=== PATIENT | female | born 1965 | race Caucasian/White ===

== ENCOUNTER → 2021-01-04 10:05 | Outpatient (CLI) | payer OTHER, SELFPAY ==
[2021-01-04] MEDS: COVID-19 VACC, Ad26(JANSSEN)/PF 0.5 ML IM (10:14)
--- NOTE | 2021-01-04 13:50 | PC.NURSE ---
patient presented to vaccine clinic for Omnidrive vaccine with her . Pt reported in advance that she gets angioedema in reaction to medications. Discussed pros and cons with patient. Patient consented to vaccine. Received the vaccine at 10:14. Patient was monitored for 45 minutes. No signs or symptoms of reaction. Patient reported she felt well. Patient instructed to return to the ED if she felt any difficulty breathing or signs of severe reaction. Patient left vaccine clinic. Patient returned to clinic at 12:20 with and came directly in. Patient stated they had never left the parking lot. she began to feel shortness of breath and chest pain, so they came back in. patient immediately placed in wheelchair and taken to the ED.
== END ==
PROVIDERS: Visit Provider Internal Medicine
DX: Z23 Encounter for immunization (principal)
CPT/HCPCS: 0031A; 91303

== ENCOUNTER 2021-01-04 12:28 | Emergency (ER) | payer OTHER, SELFPAY ==
[2021-01-04 12:27] VITALS: BP 184/90; PULSE 81; RESP 15; TEMP 36.4; O2SAT 100; BMI 23.0
[2021-01-04 12:38] VITALS: PULSE 80; O2SAT 100
--- NOTE | 2021-01-04 12:38 | ED_ITS ---
HPI - General Adult General Chief complaint: Allergic Reaction Stated complaint: Allergic reaction at vaccine clinic Time Seen by Provider: 01/04/21 12:32 Source: patient Mode of arrival: Wheelchair Limitations: no limitations History of Present Illness HPI narrative: Patient is a 55-year-old female. Approximately 2 hours status post the [employer] COVID-19 vaccine. She received that here at this facility. 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 She was waiting in her car for another hour after the vaccine where she stated that she started to get some flushing of her chest and also what sounds like palpitations. She has had no nausea or vomiting. No problems breathing. No swelling of her tongue or her lips. She has not gotten any other redness or tingling in her hands which she has had in the past with her angioedema symptoms. She went back into the immunization Clinic brought her up to the emergency department for evaluation. Related Data Allergies Allergy/AdvReac Type Severity Reaction Status Date / Time No Known Drug Allergies Allergy Verified 01/04/21 12:30 Review of Systems Constitutional Constitutional: Denies fever(s) and Denies headache(s) Eyes Eyes: Denies itchy eyes ENT Ears, Nose, Mouth, and Throat: Denies headache(s), Denies lip swelling, Denies throat swelling and Denies tongue swelling Cardiovascular Cardiovascular: Denies chest pain, Reports rapid heart rate and Denies dyspnea Respiratory Respiratory: Denies cough and Denies dyspnea Gastrointestinal Gastrointestinal: Denies abdominal pain, Denies nausea and Denies vomiting Genitourinary Genitourinary: Denies dysuria Genitourinary: Denies dysuria Musculoskeletal Musculoskeletal: Denies arthralgias and Denies myalgias Integumentary/Breasts Skin/Breast: Denies skin swelling Comments: Redness on her neck Neurologic Neurologic: Denies behavioral changes and Denies headache(s) Psychiatric Psychiatric: Denies behavioral changes Hematologic/Lymphatic On Anticoagulants: No Allergic/Immunologic Allergic/Immunologic: Denies urticaria, Denies itchy eyes, Denies lip swelling, Denies throat swelling and Denies tongue swelling Patient History Medical History Angioedema Social History Smoking Status: Unknown if ever smoked Smoking Status: Unknown if ever smoked alcohol intake frequency: holidays/special occasions only Substance Use Type: does not use Exam Initial Vital Signs Initial Vital Signs: Vital Signs Temperature 97.6 F 01/04/21 12:27 Pulse Rate 81 01/04/21 12:27 Respiratory Rate 15 01/04/21 12:27 Blood Pressure 184/90 H 01/04/21 12:27 Pulse Oximetry 100 01/04/21 12:27 Const General: cooperative, comfortable and well developed Limitations: mental status not altered HENMT Head: normal to inspection and normocephalic Resp Effort & Inspection: normal respiratory effort Auscultation: clear to auscultation bilaterally Cardio Rate: regular rate Rhythm: regular rhythm GI Inspection: non-distended Palpation: soft Skin Other: Redness without hives on the anterior portion of her neck. Neuro General: patient alert and patient awake Cognition: normal cognition Speech: speech normal Extrem General: normal to inspection and capillary refill normal Psych Appearance: grossly normal and well kempt Course Orders Ordered: ED Orders 01/04/21 12:32 EKG-12 Lead Stat Discontinued Medications Diphenhydramine HCl (Diphenhydramine 25 Mg Tablet) 25 mg PO NOW ONE Stop: 01/04/21 12:39 Last Admin: 01/04/21 12:46 Dose: 25 mg Documented by: NIDA Vital Signs Vital signs: Vital Signs - 8 hr 01/04/21 12:27 01/04/21 12:38 01/04/21 13:00 Temperature 97.6 F Pulse Rate 81 80 67 Respiratory Rate 15 Blood Pressure 184/90 H 137/77 Pulse Oximetry 100 100 99 Medical Decision Making ECG Data Attestation: I personally reviewed and interpreted this ECG as follows: Prior ECG tracings: not available for review Interpretation: Sinus rhythm Ventricular rate of 71 Occasional PVC Normal QRS Normal QTC No ST T wave changes MDM Narrative Medical decision making narrative: Patient reported improvement of symptoms after just 1 Benadryl. Is now been approximately 3 hours since her vaccine. She has no signs of anaphylaxis. Patient states she feels comfortable being discharged. We did discuss the use of Benadryl at home as needed. Discussed return precautions. She expressed understanding and agreement. Discharge Plan Departure Patient Disposition: Home Clinical Impression: Allergic reaction Instructions: DI for Hives Activity Restrictions/Additional Instructions: You can take an vejn-hry-iignaat Benadryl every 4-6 hours as needed for any itch ing. Return to the emergency department for any new or worsening symptoms.
[2021-01-04] MEDS: diphenhydrAMINE 25 MG TABLET PO (12:46)
[2021-01-04 13:00] VITALS: BP 137/77; PULSE 67; O2SAT 99
--- NOTE | 2021-01-04 13:07 | PC.NURSE ---
Pt feeling much better,sx have resolved.
== END 2021-01-04 13:22 | disposition home or self-care (01) ==
PROVIDERS: Emergency Provider Emergency Medicine
DX: T78.40XA Allergy, unspecified, initial encounter (principal)
CPT/HCPCS: 93005; 99283

== ENCOUNTER 2021-12-30 13:57 | Emergency (ER) | payer OTHER, SELFPAY ==
[2021-12-30 14:01] VITALS: BP 161/80; PULSE 74; RESP 16; TEMP 36.6; O2SAT 100; BMI 22.1
--- NOTE | 2021-12-30 14:35 | DI.RAD.S_ITS ---
PROCEDURE: XR SHOULDER LT MIN 2V INDICATIONS: sudden pain unknown TECHNIQUE: 3 views of the shoulder were acquired. COMPARISON: None. FINDINGS: Bones: No fractures or dislocations. No suspicious bony lesions. Visualized ribs appear intact. Soft tissues: No suspicious soft tissue calcifications. IMPRESSION: No visualized acute fracture or dislocation. However, if clinical concern and/or pain persist, short interval imaging followup in 7-10 days is recommended, as occult injury cannot be definitively excluded. Dictated by: Avelina Rangel M.D. on 12/30/2021 at 15:05 Approved by: Avelina Rangel M.D. on 12/30/2021 at 15:05
--- NOTE | 2021-12-30 15:15 | ED.UPPEXIN ---
HPI - Extremity Injury (Upper) <INGRID Manuel - Last Filed: 12/30/21 15:33> General Chief Complaint: Extremity Injury, Upper Stated Complaint: Left shoulder pain Time Seen by Provider: 12/30/21 14:08 Source: patient and family Mode of arrival: Ambulatory History of Present Illness HPI narrative: This is a 56-year-old female presents to the emergency department with onset of left shoulder pain last night after she she went to bed. She states that she woke up at 21:00 with left shoulder pain which has not let up. She states that she is very active, has very low cardiovascular risk, recently has had a SAMINA without abnormal findings. States her primary care provider is Dr. Finley on [facility], she denies any chest pain, shortness of breath, weakness, neck pain, recent trauma. She denies any repetitive movements of her left arm, and nothing exciting has happened to her this week, she states she could of laid on it funny but does not remember any painful positions. She denies any range of motion limitations, states pain is worse with abduction, flexion, and external rotation, all other movements are tolerable without much pain. Patient states that she has history of angioedema, does not tolerate NSAIDs, adhesives, topical ointments or creams. She has only taken Tylenol for this pain, states that that is all she is interested in trying. Related Data Allergies Allergy/AdvReac Type Severity Reaction Status Date / Time SAMIR Inhibitors Allergy Severe Anaphylaxis Verified 12/30/21 14:06 doxycycline Allergy Severe Hallucinati Verified 12/30/21 14:06 ng NSAIDS (Non-Steroidal Allergy Severe Anaphylaxis Verified 12/30/21 14:06 Anti-Inflamma Review of Systems <INGRID Manuel - Last Filed: 12/30/21 15:33> Review of Systems Narrative: General: denies fever, chills Head/Neck: denies headache, neck pain Eyes: denies visual changes, eye pain Cardio: denies chest pain, palpitations Respiratory: denies shortness of breath, cough GI: denies abdominal pain, nausea, vomiting, or diarrhea : denies dysuria, hematuria MSK: denies muscle weakness, left shoulder pain with abduction, shoulder flexion, external rotation Skin: denies rash, itching Neuro: denies numbness, tingling Patient History <INGRID Manuel - Last Filed: 12/30/21 15:33> Medical History Angioedema Social History Smoking Status: Never smoker Smoking Status: Never smoker alcohol intake frequency: holidays/special occasions only Substance Use Type: does not use Exam <INGRID Manuel - Last Filed: 12/30/21 15:33> Narrative Exam Narrative: Independently reviewed vitals signs and nursing notes. General: cooperative, comfortable, in no acute distress, well developed and well groomed Head: atraumatic, symmetrical facial expressions Neck: supple, atraumatic, without lymphadenopathy. Eyes: pupils equal round and reactive, EOMI, conjunctiva normal Nose: nares patent, no rhinorrhea Mouth/Throat: uvula midline, moist mucus membranes Cardiovascular: regular rate and rhythm, no peripheral edema, warm extremities Respiratory: normal effort, able to speak in complete sentences, no audible wheezing, stridor, or rales. No retractions or tachypnea. MSK: moves all extremities, ambulatory w/steady gait, neurovascularly intact, no weakness, left anterior shoulder tenderness with palpation, pain is worst when eliciting left shoulder flexion, external rotation, abduction, pain runs from anterior shoulder down bicep. No edema, discoloration, muscle weakness, alteration in CSM. Radial pulses 2+, cap refill less than 2 seconds, patient denies any numbness or tingling distally Skin: brisk capillary refill, no rash, no erythema Neuro: normal speech and cognition, A&O x3, normal tone Psych: mental status is grossly normal, congruent mood, normal affect, pleasant and cooperative Initial Vital Signs Initial Vital Signs: Vital Signs Temperature 97.9 F 12/30/21 14:01 Pulse Rate 74 12/30/21 14:01 Respiratory Rate 16 12/30/21 14:01 Blood Pressure 161/80 H 12/30/21 14:01 Pulse Oximetry 100 12/30/21 14:01 <Bindu Carrillo DO - Last Filed: 12/30/21 19:20> Initial Vital Signs Initial Vital Signs: Vital Signs Temperature 97.9 F 12/30/21 14:01 Pulse Rate 74 12/30/21 14:01 Respiratory Rate 16 12/30/21 14:01 Blood Pressure 161/80 H 12/30/21 14:01 Pulse Oximetry 100 12/30/21 14:01 Procedures <INGRID Manuel - Last Filed: 12/30/21 15:33> Orthopedic Splinting/Casting Injury #1: Upper Extremity Injury Location: shoulder Upper Extremity Immobilizer: sling/shoulder immobilizer Course <INGRID Manuel - Last Filed: 12/30/21 15:33> Orders Ordered: ED Orders 12/30/21 14:11 EKG-12 Lead Stat 12/30/21 14:35 XR shoulder LT min 2V Stat Vital Signs Vital signs: Vital Signs - 8 hr 12/30/21 14:01 12/30/21 17:05 Temperature 97.9 F Pulse Rate 74 65 Respiratory Rate 16 16 Blood Pressure 161/80 H 159/89 H Pulse Oximetry 100 98 <Bindu Carrillo DO - Last Filed: 12/30/21 19:20> Orders Ordered: ED Orders 12/30/21 14:11 EKG-12 Lead Stat 12/30/21 14:35 XR shoulder LT min 2V Stat Vital Signs Vital signs: Vital Signs - 8 hr 12/30/21 14:01 12/30/21 17:05 Temperature 97.9 F Pulse Rate 74 65 Respiratory Rate 16 16 Blood Pressure 161/80 H 159/89 H Pulse Oximetry 100 98 MDM - Extremity Injury (Upper) <INGRID Manuel - Last Filed: 12/30/21 15:33> Imaging Data Extremity x-ray #1: Radiologist's Impression: PROCEDURE:? XR SHOULDER LT MIN 2V ? INDICATIONS:? sudden pain unknown ? TECHNIQUE:? 3 views of the shoulder were acquired.? ? COMPARISON:? None. ? FINDINGS:? ? Bones:? No fractures or dislocations.? No suspicious bony lesions.? Visualized ribs appear intact.? ? Soft tissues:? No suspicious soft tissue calcifications.? ? IMPRESSION:? No visualized acute fracture or dislocation. However, if clinical concern and/or pain persist, short interval imaging followup in 7-10 days is recommended, as occult injury cannot be definitively excluded. ? ? Dictated by: Avelina Rangel M.D. on 12/30/2021 at 15:05 ? ? Approved by: Avelina Rangel M.D. on 12/30/2021 at 15:05 ? ECG Data Interpretation: EKG independently reviewed by myself and Dr. Bindu Carrillo which reveals normal sinus rhythm at 71 bpm with regular axis and intervals. No STEMI, ST segment changes, arrhythmia, or acute ischemic changes. MDM Narrative Medical decision making narrative: This is a 56 year female without pertinent medical history who presents to the emergency department with acute onset of left shoulder pain last night without known injury. Patient has pain with left shoulder flexion, external rotation, abduction, no significant pain with other movements. CSM is intact, x-ray does not show any acute fracture dislocation, no osseous abnormality was visible on x-ray. Patient is an active female who exercises regularly, she denies any recent or frequent repetitive movements, injury, or trauma. Patient was encouraged to follow-up with her primary care provider for advanced imaging and a physical therapy referral if her symptoms are ongoing. Patient declined any other medications in addition to Tylenol. She has a history of anaphylaxis, so urgent Samir inhibitors, NSAIDs, and doxycycline. She is given a sling, encouraged to wear her sling when she is out of the house, and also encouraged to take her arm out of the sling and do gentle range of motion at home to help prevent shoulder impingement syndrome. I suspect this is an anterior rotator cuff injury, she has palpable tenderness on her anterior left shoulder. She was given ice pack, encouraged her eyes her left shoulder frequently, use heat for her muscle tension, and follow-up with her primary care provider. She was given the phone number for [facility] if her symptoms are not improving, she will follow up accordingly. Patient is appropriate and amenable to discharge home. Vital signs are stable on repeat examination is unremarkable. Patient has been informed of results. Patient has been given strict return to ER precautions for any new or worsening symptoms. Patient understands to follow up closely with outpatient providers as instructed. Patient understands plan and agrees to discharge home. All questions and concerns answered at this time. Discharge Plan Departure Patient Disposition: Home Clinical Impression: Sprain of left shoulder Qualifiers: Encounter type: initial encounter Shoulder sprain type: rotator cuff capsule Qualified Code(s): S43.422A - Sprain of left rotator cuff capsule, initial encounter Instructions: Shoulder Sprain, Frozen Shoulder, Shoulder Tendinopathy, DI for Shoulder Sprain Activity Restrictions/Additional Instructions: *You have been diagnosed with an anterior rotator cuff sprain or strain. It is difficult to know exactly what happened because your symptoms are consistent with an injury. Your EKG appears fine, this is very unlikely that this is cardiac in nature. Please wear a sling when your out of the house, ice it frequently, take Tylenol as needed for your pain. Please ice it frequently, do gentle light movement as opposed to wearing a sling at all times. If you wear sling too long it can cause frozen shoulder syndrome. I have attached information about that so you can try and avoid it. If your pain is not improving, please contact your primary care provider and ask for a referral to physical therapy and for a MRI. In follow-up with orthopedics. I have attached [facility] below, you may call them and make an appointment if your symptoms are ongoing/worsening. Thank you for trusting us with your care, your x-ray is available on [employer] and will be available to your providers when I send your chart to them. *What to do: *Please continue to take your regular medications as directed. [ ] New medication prescriptions sent to your pharmacy: [ ] [ ] New medication written as a paper prescription [x ] No new medications given *Please follow up with your primary care provider in 2-3 days, call for an appointment. Let them know you were seen in the Emergency Department and that we asked that you be seen for follow-up. We will electronically transmit a record of today's note if your PCP is in our system to *If you do not have a primary care provider please contact [phone] to establish care with one of [facility] primary care providers. *Return to Emergency Department if you should have any new, worsening or concerning symptoms, such as [fever greater than 101F, chills, worsening pain, persistent vomiting or other bothersome symptoms] Referrals: [facility] [Provider Group] Rosario Finley MD [Physician] - <Bindu Carrillo DO - Last Filed: 12/30/21 19:20> Cosign ED Attending Cosk[place] Attestation: I was immediately available in the department for consultation. Documentation has been reviewed.
[2021-12-30 17:05] VITALS: BP 159/89; PULSE 65; RESP 16; O2SAT 98
== END 2021-12-30 15:40 | disposition home or self-care (01) ==
PROVIDERS: Emergency Provider Nurse Practitioner Critical Care Medicine
DX: S43.402A Unspecified sprain of left shoulder joint, initial encounter (principal); R03.0 Elevated blood-pressure reading, without diagnosis of hypertension; X58.XXXA Exposure to other specified factors, initial encounter
CPT/HCPCS: 73030; 93005; 93010; 99283

== ENCOUNTER → 2025-02-10 09:02 | Outpatient (CLI) | payer OTHER, SELFPAY ==
--- NOTE | 2025-02-10 09:06 | DI.RAD.S_ITS ---
PROCEDURE: XR SACRUM COCCYX MIN 2V INDICATIONS: LOW BACK PAIN TECHNIQUE: 3 views of the sacrum and coccyx acquired. COMPARISON: [facility], CR, XR LUMBAR SPINE 2-3V, 02/10/2025, 9:12. FINDINGS: Bones: No fractures or dislocations. No suspicious bony lesions. Soft tissues: Visualized bowel gas pattern is normal. No suspicious soft tissue densities. IMPRESSION: Normal for age. Please also review the lumbosacral spine plain film report from today. Dictated by: Josias Blankenship M.D. on 02/10/2025 at 13:23 Approved by: Josias Blankenship M.D. on 02/10/2025 at 13:24
--- NOTE | 2025-02-10 09:06 | DI.RAD.S_ITS ---
PROCEDURE: XR LUMBAR SPINE 2-3V INDICATIONS: LOW BACK PAIN TECHNIQUE: 3 views of the lumbar spine were acquired. COMPARISON: None. FINDINGS: Bones: 5 [id number] vertebrae are present. There is mild levo scoliotic bony alignment centered at L3. No vertebral body compression fractures. No suspicious bony lesions. Degenerative changes are minimal to the L5-S1 level where moderate disc height reduction and bilateral facet osteoarthritis is present to the degree that spinal and foraminal stenosis may be present at this level Soft tissues: Overlying bowel gas pattern is normal. No suspicious soft tissue calcifications. IMPRESSION: No trauma found. Mild convex leftward scoliosis. Minimal degenerative changes to L5-S1 where moderate osteoarthritic and this degeneration is present to the degree that spinal and foraminal stenosis may be associated. Dictated by: Josias Blankenship M.D. on 02/10/2025 at 13:21 Approved by: Josias Blankenship M.D. on 02/10/2025 at 13:23
== END ==
PROVIDERS: PCP Family Medicine; Referring Provider Family Medicine; Visit Provider Family Medicine
DX: M47.27 Other spondylosis with radiculopathy, lumbosacral region (principal); M54.50 Low back pain, unspecified; M41.9 Scoliosis, unspecified
CPT/HCPCS: 72100; 72220